=== PATIENT | male | born 1995 | race Hispanic/Latino ===

== ENCOUNTER 2017-12-11 10:43 | Observation (INO) | payer OTHER ==
[2017-12-11] MEDS ORDERED: NA CHLORIDE 0.9% 1,000 ML ONE (11:13)
[2017-12-11 11:34] LABS: Absolute Lymphocytes (CBC) 1.1 K/uL (0.7-4.9); Absolute Monocytes 0.4 K/uL (0.1-1.3); Absolute Neutrophil 4.7 K/uL (1.8-8.0); Basophils % 0.5 % (0-1.3); Eosinophils % 0.5 % (0-4.4); Hematocrit 46.9 % (39.6-49.0); MCH 30.9 pg (27.0-35.0); MCV 85.8 fL (80-100); MPV 8.8 fL (7.6-11.3); Monocytes % 6.3 % (3.3-12.3); RBC Red Blood Cell Count 5.46 M/uL (4.33-5.43)
[2017-12-11 11:39] LABS: Protime INR 1.17
[2017-12-11] MEDS ORDERED: MORPHINE 4 MG/ML SYR ONE ×3 (11:55→15:44)
[2017-12-11] MEDS ORDERED: ONDANSETRON 4 MG/2 ML VIAL ONE ×2 (11:55→12:58)
[2017-12-11 12:06] LABS: ALT/SGPT 14 U/L (12-78); AST/SGOT 18 U/L (15-37); Albumin 4.8 g/dL (3.4-5.0); Alkaline Phosphatase 73 U/L (45-117); BUN Blood Urea Nitrogen 10 mg/dL (7-18); Bicarbonate 27 mmol/L (21-32); Bilirubin Direct 0.3 mg/dL (0-0.2); Bilirubin Total 1.4 mg/dL (0.2-1.0); Glucose Level 104 mg/dL (74-106); Potassium 3.9 mmol/L (3.5-5.1); Protein, Total 8.4 g/dL (6.4-8.2); Sodium Level 139 mmol/L (136-145)
[2017-12-11 12:07] LABS: Lipase 213 U/L (73-393)
--- NOTE | 2017-12-11 12:18 | RAD REPORT ---
EXAM DESCRIPTION: RAD - Abdomen Acute Series - 12/11/2017 12:03 pm CLINICAL HISTORY: Possible rectal foreign body Abdominal pain COMPARISON: No comparisons FINDINGS: The lungs are clear. No subdiaphragmatic free air. No bowel obstruction is seen. No pathol ogic calcifications. Rectal foreign body is seen which has the appearance of a pen. Suggest direct vi sualization.
--- NOTE | 2017-12-11 12:30 | ER ---
Nurse's Notes [facility] Name: Jw Forrest Age: 22 yrs Sex: Male : 1995 Arrival Date: 12/11/2017 Time: 10:44 Bed 14 Private MD: Diagnosis: Foreign body in anus and rectum Presentation: 12/11 10:44 Presenting complaint: Patient states: Patient reports that she was douching rectum in group home with water bottle and checked to see if rectal vault was clear with a pen and accidently let go of the pen. Patient denies bleeding, reports lower abd pain. Patient states that the group home nurse attempted to remove object, but was unable to find anything. Transition of care: patient was not received from another setting of care. Onset of symptoms was December 11, 2017. Risk Assessment: Do you want to hurt yourself or someone else? Patient reports no desire to harm self or others. Initial Sepsis Screen: Does the patient meet any 2 criteria? No. Patient's initial sepsis screen is negative. Does the patient have a suspected source of infection? No. Patient's initial sepsis screen is negative. Care prior to arrival: None. 10:44 Method Of Arrival: Law Enforcement: [place] [employer] 10:44 Acuity: FABIANO 2 ss Historical: - Allergies: 10:48 No Known Allergies; ss - Home Meds: 10:48 unknown anxiety medicaitons [Active]; ss - PMHx: 10:48 Anxiety; ss - PSHx: 10:48 "bottom surgery"; ss - Immunization history:: Adult Immunizations up to date. - Social history:: Smoking status: Patient/guardian denies using tobacco. - Ebola Screening: : Patient denies exposure to infectious person Patient denies travel to an Ebola-affected area in the 21 days before illness onset. Screenin:00 Abuse screen: Denies threats or abuse. Denies injuries from another. Nutritional hb screening: No deficits noted. Tuberculosis screening: No symptoms or risk factors identified. Fall Risk None identified. Assessment: 10:59 Reassessment: Patient reports that she identifies as female. ss 11:10 General: Appears in no apparent distress. Behavior is calm, cooperative. Pain: Pain hb currently is 9 out of 10 on a pain scale. Neuro: Level of Consciousness is awake, alert, obeys commands, Oriented to person, place, time, situation. Cardiovascular: Heart tones S1 S2 present Capillary refill < 3 seconds Patient's skin is warm and dry. Respiratory: Airway is patent Trachea midline Respiratory effort is even, unlabored, Respiratory pattern is regular, symmetrical, Breath sounds are clear bilaterally. GI: Abdomen is non-distended, Bowel sounds present X 4 quads. Abd is soft X 4 quads Abdomen is tender to palpation in suprapubic area. : No signs and/or symptoms were reported regarding the genitourinary system. EENT: No signs and/or symptoms were reported regarding the EENT system. Derm: Skin is intact, is healthy with good turgor, Skin is pink, warm \\T\\ dry. Musculoskeletal: No signs and/or symptoms reported regarding the musculoskeletal system. 12:36 Reassessment: [facility] who states they currently do not have an appropriate ss bed for this patient currently. Options are to transfer elsewhere, wait for discharges or admit patient or have a specialist here see him. No GI programmer numerical control here today. Dr. Levi and MARCELO Brooks notified. Dr. Levi called Dr. Forrest who states he will be down shortly to see the patient. 12:46 Reassessment: Dr. Forrest at bedside to evaluate pt Patient denies pain at this time. hb 12:58 Reassessment: Pt c/o pain 9/10 and nausea. MARCELO Brooks notified, repeat Travis and hb morphine administered as ordered. VSS. Snf guards remain at bedside. Vital Signs: 10:48 BP 148 / 95; Pulse 140; Resp 19; Pulse Ox 98% on R/A; Weight 54.43 kg; Height 5 ft. 5 ss in. (165.10 cm); Pain 8/10; 11:22 BP 143 / 90; Pulse 115; Resp 15; Pulse Ox 100% on R/A; hb 12:45 BP 147 / 65; Pulse 109; Resp 15; Temp 98.3(O); Pulse Ox 100% on R/A; Pain 9/10; hb 10:48 Body Mass Index 19.97 (54.43 kg, 165.10 cm) ED Course: 10:44 Patient arrived in ED. ss 10:48 Triage completed. ss 10:48 Arm band placed on right wrist. ss 10:50 Todd Falcon NP [facility]. pm1 10:50 Emeka Levi MD is Attending Physician. pm1 10:53 Christen Ryan, MATILDA is Primary Nurse. hb 11:00 Patient has correct armband on for positive identification. Bed in low position. Call hb light in reach. Side rails up X 1. Snf Guards x 2 at bedside. 11:10 Inserted saline lock: 20 gauge in right antecubital area, using aseptic technique. hb Blood collected. 11:26 Inserted saline lock: 22 gauge in left antecubital area, using aseptic technique. IV tw2 discontinued, intact, bleeding controlled, No redness/swelling at site. Pressure dressing applied, IV 20g RIGHT AC. 11:29 Radiology exam delayed due to [facility] NEEDING DOCUMENTATION PROOF OF X RAY ag1 ORDERS AND REASON TO REMOVE SHACKLES FOR IMAGING. 12:03 X-ray completed. Patient tolerated procedure well. Patient moved to radiology via ml wheelchair. Patient moved back from radiology. 12:04 Abdomen Acute Series XRAY In Process Unspecified. EDMS 12:53 Harpreet Forrest MD is Hospitalizing Provider. pm1 13:45 No provider procedures requiring assistance completed. Patient admitted, IV remains in hb place. Administered Medications: 11:22 Drug: NS 0.9% 1000 ml Route: IV; Rate: 1000 ml; Site: left antecubital; hb 11:53 Drug: Zofran 4 mg Route: IVP; Site: left antecubital; hb 12:30 Follow up: Response: No adverse reaction hb 11:53 Drug: morphine 4 mg Route: IVP; Site: left antecubital; hb 12:30 Follow up: Response: No adverse reaction hb 12:56 Drug: morphine 4 mg Route: IVP; Site: right antecubital; hb 13:30 Follow up: Response: No adverse reaction hb 12:56 Drug: Zofran 4 mg Route: IVP; Site: right antecubital; hb 13:30 Follow up: Response: No adverse reaction hb Outcome: 12:29 ER care complete, transfer ordered by . pm1 12:54 Decision to Hospitalize by Provider. pm1 13:45 Admitted to OR accompanied by nurse. hb 13:45 Condition: stable 13:45 Instructed on the need for admit, Demonstrated understanding of instructions. 13:49 Patient left the ED. aj1 Signatures: Dispatcher [employer] EDMS Marylou Blanco RN RN aj1 Maria Guadalupe Randolph Shelby, RN RN ss Ember Payne ag1 Todd Falcon, DIE REAMER DIE REAMER pm1 Christen Ryan, RN RN hb Octavia Hale, RN RN tw2
--- NOTE | 2017-12-11 12:30 | EDPHYS ---
Physician Documentation [facility] Name: Jw Forrest Age: 22 yrs Sex: Male : 1995 Arrival Date: 12/11/2017 Time: 10:44 Bed 14 Private MD: ED Physician Emeka Levi HPI: 12/11 11:58 This 22 yrs old Male presents to ER via Law Enforcement with complaints of pm1 Rectal Foreign Body. 11:58 The patient presents to the emergency department with a foreign body sensation in the pm1 rectum. Onset: The symptoms/episode began/occurred yesterday. Context: the patient has placed a foreign body into the rectum, Pen. Modifying factors: The symptoms are alleviated by nothing, The symptoms are aggravated by nothing. Associate signs and symptoms: Pertinent positives: abdominal pain in the suprapubic area, Pertinent negatives: fever, lower GI bleeding, vomiting. The patient has not experienced similar symptoms in the past. Patient seen by mcc PA. PA was unable to remove foreign body from rectum. Patient was performing enema with water and water bottle. Doing what other prisoners do. Checks with a pen to see if it is dirty to determine if additional cleaning required. Lost shade matcher of the pen and it got stuck inside. [facility] PA was unable to remove foreign body. Patient complaining of suprapubic pain. No rectal bleeding. 12:22 Patient reports that the PA was initially able to feel the tip of the pen but when she pm1 tried to extract it kept on going deeper and then she was no longer able to feel it. Historical: - Allergies: 10:48 No Known Allergies; ss - Home Meds: 10:48 unknown anxiety medicaitons [Active]; ss - PMHx: 10:48 Anxiety; ss - PSHx: 10:48 "bottom surgery"; ss - Immunization history:: Adult Immunizations up to date. - Social history:: Smoking status: Patient/guardian denies using tobacco. - Ebola Screening: : Patient denies exposure to infectious person Patient denies travel to an Ebola-affected area in the 21 days before illness onset. ROS: 11:58 Constitutional: Negative for fever, chills, and weight loss, Eyes: Negative for injury, pm1 pain, redness, and discharge, ENT: Negative for injury, pain, and discharge, Neck: Negative for injury, pain, and swelling, Cardiovascular: Negative for chest pain, palpitations, and edema, Respiratory: Negative for shortness of breath, cough, wheezing, and pleuritic chest pain. 11:58 Back: Negative for injury and pain, : Negative for injury, bleeding, discharge, and swelling, MS/Extremity: Negative for injury and deformity, Skin: Negative for injury, rash, and discoloration, Neuro: Negative for headache, weakness, numbness, tingling, and seizure. 11:58 Abdomen/GI: Positive for abdominal pain, Negative for nausea, vomiting, and diarrhea, rectal pain, rectal bleeding. Exam: 11:58 Constitutional: This is a well developed, well nourished patient who is awake, alert, pm1 and in no acute distress. Head/Face: Normocephalic, atraumatic. Eyes: Pupils equal round and reactive to light, extra-ocular motions intact. Lids and lashes normal. Conjunctiva and sclera are non-icteric and not injected. Cornea within normal limits. Periorbital areas with no swelling, redness, or edema. ENT: Nares patent. No nasal discharge, no septal abnormalities noted. Tympanic membranes are normal and external auditory canals are clear. Oropharynx with no redness, swelling, or masses, exudates, or evidence of obstruction, uvula midline. Mucous membranes moist. Neck: Trachea midline, no thyromegaly or masses palpated, and no cervical lymphadenopathy. Supple, full range of motion without nuchal rigidity, or vertebral point tenderness. No Meningismus. Chest/axilla: Normal chest wall appearance and motion. Nontender with no deformity. No lesions are appreciated. Cardiovascular: Regular rate and rhythm with a normal S1 and S2. No gallops, murmurs, or rubs. No pulse deficits. Respiratory: Lungs have equal breath sounds bilaterally, clear to auscultation and percussion. No rales, rhonchi or wheezes noted. No increased work of breathing, no retractions or nasal flaring. Back: No spinal tenderness. No costovertebral tenderness. Full range of motion. 11:58 Skin: Warm, dry with normal turgor. Normal color with no rashes, no lesions, and no evidence of cellulitis. MS/ Extremity: Pulses equal, no cyanosis. Neurovascular intact. Full, normal range of motion. 11:58 Abdomen/GI: Inspection: abdomen appears normal, Bowel sounds: normal, Palpation: abdomen is soft and non-tender, mass, is not appreciated, rebound tenderness, is not appreciated. 11:58 Neuro: Orientation: is normal, Motor: moves all fours. Vital Signs: 10:48 BP 148 / 95; Pulse 140; Resp 19; Pulse Ox 98% on R/A; Weight 54.43 kg; Height 5 ft. 5 ss in. (165.10 cm); Pain 8/10; 11:22 BP 143 / 90; Pulse 115; Resp 15; Pulse Ox 100% on R/A; hb 12:45 BP 147 / 65; Pulse 109; Resp 15; Temp 98.3(O); Pulse Ox 100% on R/A; Pain 9/10; hb 10:48 Body Mass Index 19.97 (54.43 kg, 165.10 cm) ss MDM: 10:55 Patient medically screened. pm1 12:08 Data reviewed: vital signs. Data interpreted: Pulse oximetry: on room air is 100 %. pm1 Interpretation: normal. 12:28 Counseling: I had a detailed discussion with the patient and/or guardian regarding: the pm1 historical points, exam findings, and any diagnostic results supporting the discharge/admit diagnosis, lab results, radiology results, the need to transfer to another facility, for higher level of care, [facility] specialist. 12:37 Physician consultation: Harpreet Forrest MD was called at 12:37, was contacted at 12:37, pm1 regarding patient's condition, and will see patient in ED, shortly, Contacted by Dr. Levi. No bed available at [facility]. 12:58 Physician consultation: Harpreet Forrest MD in the emergency department to see patient at pm1 12:52, Will take the patient to surgery for removal of foreign body with possibility for ostomy if perforation of bowel present. 12/11 11:05 Order name: Basic Metabolic Panel; Complete Time: 12: pm1 12/11 11:05 Order name: CBC with Diff; Complete Time: 11:46 pm1 12/11 11:05 Order name: Creatinine for Radiology; Complete Time: 12:09 pm1 12/11 11:05 Order name: Hepatic Function; Complete Time: 12:09 pm12/11 11:05 Order name: Lipase; Complete Time: 12:09 pm1 12/11 11:05 Order name: Type And Screen; Complete Time: 12:38 pm1 12/11 11:02 Order name: Abdomen Acute Series XRAY; Complete Time: 12:18 pm1 12/11 11:05 Order name: Urine Microscopic Only pm1 12/11 11:05 Order name: PT-INR; Complete Time: 11:46 pm1 12/11 12:29 Order name: ABO/RH no charge; Complete Time: 12:38 EDMS 12/11 11:05 Order name: IV Saline Lock; Complete Time: 11:20 pm1 12/11 11:05 Order name: Labs collected and sent; Complete Time: 11:20 pm1 12/11 13:08 Order name: NPO; Complete Time: 13:13 EDMS Administered Medications: 11:22 Drug: NS 0.9% 1000 ml Route: IV; Rate: 1000 ml; Site: left antecubital; hb 11:53 Drug: Zofran 4 mg Route: IVP; Site: left antecubital; hb 12:30 Follow up: Response: No adverse reaction hb 11:53 Drug: morphine 4 mg Route: IVP; Site: left antecubital; hb 12:30 Follow up: Response: No adverse reaction hb 12:56 Drug: morphine 4 mg Route: IVP; Site: right antecubital; hb 13:30 Follow up: Response: No adverse reaction hb 12:56 Drug: Zofran 4 mg Route: IVP; Site: right antecubital; hb 13:30 Follow up: Response: No adverse reaction hb Disposition: 12/11/17 12:54 Hospitalization ordered by Harpreet Forrest for Observation. Preliminary diagnosis is Foreign body in anus and rectum. - Bed requested for Telemetry/MedSurg (observation). - Status is Observation. aj1 - Condition is Stable. - Problem is new. - Symptoms have improved. UTI on Admission? No Addendum: 12/14/2017 17:55 Co-signature as Attending Physician, Emeka Levi MD. g s Signatures: Dispatcher [employer] EDMS Marylou Blanco RN RN aj1 Lissette Smith RN RN ss Marinas, Patrick, RADIOLOGY RECEPTIONIST RADIOLOGY RECEPTIONIST pm1 Christen Ryan RN RN hb Starr, Gregory, MD MD Corrections: (The following items were deleted from the chart) 12/11 12:25 11:58 Patient seen by mcc PA. PA was unable find or remove foreign body from rectum, pm1 pm1 12:25 11:58 Patient was performing enema with water and water bottle. Doing what other pm1 prisoners do. Checks with a pen to see if it is dirty to determine if additional cleaning required. Lost shade matcher of the pen and it got stuck inside. Senior Living PA was unable to find or remove foreign body. Patient complaining of suprapubic pain. No rectal bleeding. pm1 12:52 12:29 12/11/2017 12:29 Transfer ordered to [facility]. Diagnosis is Foreign body in pm1 anus and rectum. Reason for transfer: Higher level of care. Accepting physician is [facility]. Condition is Stable. Problem is new. Symptoms have improved. pm1 13:03 11:58 Onset: The symptoms/episode began/occurred just prior to arrival, pm1 pm1 13:49 12:54 Hospitalization Ordered by Harpreet Forrest MD for Observation. Preliminary aj1 diagnosis is Foreign body in anus and rectum. Bed requested for Telemetry/MedSurg (observation). Status is Observation. Condition is Stable. Problem is new. Symptoms have improved. UTI on Admission? No. pm1
[2017-12-11] MEDS ORDERED: MORPHINE 4 MG/ML SYR IV PRN (13:22)
[2017-12-11] MEDS ORDERED: ONDANSETRON 4 MG/2 ML VIAL IV PRN (13:22)
[2017-12-11] MEDS ORDERED: Ringers Lactate 1,000 ML IV ONE (13:50)
[2017-12-11] MEDS ORDERED: Levofloxacin 750mg IV 750 MG/150 ML BAG IV ONE (14:04)
[2017-12-11] MEDS ORDERED: MIDAZOLAM HCL 2 MG/2 ML INJ ONE (14:13)
[2017-12-11] MEDS ORDERED: LIDOCAINE 2% MPF 5 ML VIAL ONE (14:14)
[2017-12-11] MEDS ORDERED: PROPOFOL 200 MG/20 ML VIAL IV ONE (14:14)
[2017-12-11] MEDS ORDERED: FENTANYL CITR 100 MCG/2 ML ONE (14:14)
--- NOTE | 2017-12-11 14:58 | P.BOP ---
Preoperative diagnosis: retained rectal fb, pelvic pain Postoperative diagnosis: same Primary procedure: 1. EUA, 2. Rigid Proctoscopy, 3. anoscopy, 4.Removal of rectal foreign body Secondary procedure: 5. Interpretation of fluoroscopy Estimated blood loss: <1cc Specimen: FB (Pen) Findings: FB, no obvious perforation Anesthesia: General Complications: None Transferred to: Recovery Room Condition: Good
[2017-12-11] MEDS ORDERED: MORPHINE 2 MG/ML SYR IV PRN (15:00)
--- NOTE | 2017-12-11 15:12 | RAD REPORT ---
EXAM DESCRIPTION: RAD - Fluoroscopy <1 Hour - 12/11/2017 2:57 pm CLINICAL HISTORY: FOREIGN BODY REMOVAL COMPARISON: No comparisons FINDINGS: Fluoroscopic imaging is submitted from rectal foreign body removal procedure. Details of the procedure not available. Fluoroscopy time: 0.1 minutes.
[2017-12-11] MEDS ORDERED: DEXAMETHASONE 10 MG/ML VIAL ONE (15:40)
[2017-12-11] MEDS ORDERED: PROMETHAZINE 25 MG/ML VIAL ONE (15:43)
[2017-12-11] MEDS: NA CHLORIDE 0.9% 1,000 ML IV SCH ×2 (17:17→23:51)
[2017-12-11] MEDS: CIPROFLOXACIN 400mg IV 400 MG/200 ML BAG IV SCH (20:18)
[2017-12-11] MEDS: HYDROCODONE/APAP 5/325 MG TAB PO PRN (22:07)
--- NOTE | 2017-12-12 01:42 | HP ---
Date of Admission: 12/11/2017 Reason For Consult: Retained foreign body in the rectum with suprapubic pain. History Of Present Illness: This is the case of a 22-year-old inmate, brought by law enforcement aft er complaining of suprapubic pain and then he said that he put a pen on his rectum, but he lost patternmaker hand of that and it is still there since yesterday. He denies any dysuria, hematuria, hematochezia, or me chapincito. No recent traveling out of the country. No family member sick at home. The patient stated th e pen has a metal tip. The one side of the pen is not uniform, but it was there before th at was broken previously. He cannot give more information. He is very shy about his condition. He then claim he has a gender surgery done, although he does not want to show us at this time. The shorty ent right now with guards and also restrained. Past Medical History: Include anxiety. Allergies: NONE. Past Surgical History: He say genitalia surgery, although he cannot specify on it. Family History: Noncontributory. He does smoke. He does not drink alcohol. Review of Systems: Constitutional: Denies any fever or chills. Respiratory: Denies any shortness of breath. Abdominal: As above. Genitalia: As above. Extremity: No calf tenderness. Physical Examination: General: The patient is awake and alert. HEENT: Pupils equal, reactive, anicteric. Neck: Supple. Chest: Clear. Heart: S1, S2. Abdomen: Soft and depressible. No guarding or rebound. The patient has some suprapubic tenderness. Genitalia: The patient refused evaluation at this moment, under anesthesia. Rectal: The patient refused evaluation at this moment, under anesthesia. Extremities: Good capillary refill. Neuro: Cranial nerves 2 through 12 grossly within normal limits. Laboratory Data: Blood work shows a WBC count of 6.3, hemoglobin of 16.9, and platelets of 213. INR is 1.17. Potassium 3.9. Abdominal x-rays shows diaphragmatic free air. There is a rect al foreign body, has appearance of a pen. Assessment: This is a 22-year-old patient with retained foreign body in the rectum he put it there h imself, and he is getting some pain and discomfort that was yesterday. Today, we offered him examina tion under anesthesia, anoscopy, possible removal of foreign body, possible laparotomy, possible rohith l resection, possible ostomy with benefits, alternatives, and risks, which include, but are not limit ed to infection, bleeding, damage to adjacent structures, anesthesia complication, unable to remove t he foreign body, myocardial infarction, even . He also understands this may not relieve the sym ptoms. He might need more than one surgical intervention. He understood and signed a consent. The patient was emergently brought to the operating room. ALL Voice ID: [id number]
[2017-12-12] MEDS: HYDROCODONE/APAP 5/325 MG TAB PO PRN ×5 (02:09→18:47)
[2017-12-12 03:15] LABS: Urine Appearance CLEAR; Urine Bilirubin NEGATIVE (NEG); Urine Blood NEGATIVE (NEG); Urine Color YELLOW; Urine Glucose NEGATIVE (NEG); Urine Protein NEGATIVE (NEG)
[2017-12-12 03:36] LABS: Urine Bacteria <20 /HPF (NONE SEEN); Urine Culture Reflex Order NOT NEEDED; Urine RBC NONE SEEN /HPF (NONE SEEN)
[2017-12-12] MEDS: CIPROFLOXACIN 400mg IV 400 MG/200 ML BAG IV SCH (09:11)
[2017-12-12] MEDS: NA CHLORIDE 0.9% 1,000 ML IV SCH (10:00)
[2017-12-12 17:26] VITALS: BP 105/55; TEMP 98.6
[2017-12-12 18:29] VITALS: O2SAT 99
--- NOTE | 2017-12-13 08:22 | RAD REPORT ---
EXAM DESCRIPTION: RAD - Abdomen W Erect - 12/12/2017 8:17 am CLINICAL HISTORY: Abdominal pain COMPARISON: None. TECHNIQUE: Supine and upright views of the abdomen were obtained. FINDINGS: Moderate stool volume is seen in the ascending and descending portions of the colon. No sm all bowel dilatation. No free air or pneumatosis. No abnormal calcifications and no foreign body. IMPRESSION: No acute abdomen or pelvis finding.
--- NOTE | 2017-12-14 23:00 | OP ---
Date of Procedure: 12/11/2017 Surgeon: Harpreet Forrest MD Preoperative Diagnosis: Retained rectal foreign body, pelvic pain. Postoperative Diagnoses: Retained rectal foreign body, pelvic pain. Procedures: 1.Examination under anesthesia, rigid proctoscopy, anoscopy. 2.Removal rectal foreign body. 3.Interpretation of fluoroscopy. Specimen: Foreign body that looked like a pen. Findings: Foreign body. No obvious perforation. Anesthesia: General plus local. Complications: None. Indication For Procedure: This is the case of a 22-year-old inmate with a self-inflicted trauma to h is rectum by using a foreign body that he claimed was for fun purposes. He denies any attack or any assault. He states he is used to do it. He was stimulating himself but then after that he lost trac tion of the foreign body and he could not get it out, so he was sent to the ER with some discomfort i n the pelvis and he did not tell anybody it was just because he has a foreign body in that area. The patient fully explained the need for EUA anoscopy, proctoscopy, possible removal of foreign body wit h benefits, alternatives, and risks including but not limited to infection, bleeding, damage to adjac ent structures, anesthesia complication, [place], and even . He also understands this may not reliev e any symptoms and he might need more than one surgical invention. In the case we find bowel perfora tion, he may need also a laparotomy, possible bowel resection, possible ostomy. He was also advised and counseled about the importance of avoiding damage to that area and that it may result a life thre atening condition. He signed a consent. Description Of Procedure: The patient was brought to the operating room, placed in supine position. Anesthesia was done without complication. The patient was placed in the lithotomy position with pro per protection. Carefully, an evaluation was done with an anoscope. Due to the location of it, we h ad to use a rigid sig. I advanced under direct visualization in the central lumen until we find the foreign body. We noticed that it is pen, does not seem to be perforating but looked to be caught in the mucosa, so we obtained an anoscope that is longer with a window on the side and this allowed me t o put an instrument to grab the pen and without ripping any area we just proceeded to remove the pen gently without any lacerations. We checked the proximal and distal side. There was no evidence of p erforation. The foreign body was removed. The patient tolerated the procedure well. I have to ment ion that in order for us to localize the area of the pen since at beginning we did not see it so leticia earl, we used a fluoroscopy machine. At the end of the case also we used fluoroscopy machine and we c ould not see any other foreign body. The patient tolerated the procedure well. The patient was sent to recovery in stable condition. BIJAL/JANY Voice ID: [id number] Report ID: [id number]
== END 2017-12-12 19:43 ==
LOC: ER 10:43 → ERHOLD 13:05 → 2ND 14:57
PROVIDERS: ADMIT Surgery; ATTEND Surgery
PROC: 0DCP8ZZ Extirpation of Matter from Rectum, Via Natural or Artificial Opening Endoscopic (ICD-10-PCS; principal; 2017-12-11 14:00)
DX: T18.5XXA Foreign body in anus and rectum, initial encounter (principal); X58.XXXA Exposure to other specified factors, initial encounter; Y92.143 Cell of prison as the place of occurrence of the external cause; R10.2 Pelvic and perineal pain
CPT/HCPCS: 36415; 74019; 74022; 76000; 80048; 80076; 81001; 83690; 85025; 85610; 86850; 86900; 86901; 88300; 99285; G0378; J0744; J1100; J2250; J2270; J2405; J2550; J3010; J7030

== ENCOUNTER 2017-12-14 00:20 | Emergency (ER) | payer OTHER ==
[2017-12-14 01:03] LABS: Absolute Lymphocytes (CBC) 1.4 K/uL (0.7-4.9); Absolute Monocytes 0.4 K/uL (0.1-1.3); Absolute Neutrophil 5.6 K/uL (1.8-8.0); Basophils % 0.7 % (0-1.3); Eosinophils % 0.3 % (0-4.4); Hematocrit 47.6 % (39.6-49.0); Lymphocytes % 18.9 % (15.3-44.8); MCH 30.8 pg (27.0-35.0); MCV 86.8 fL (80-100); MPV 8.6 fL (7.6-11.3); Monocytes % 4.9 % (3.3-12.3); RBC Red Blood Cell Count 5.49 M/uL (4.33-5.43)
[2017-12-14 01:19] LABS: BUN Blood Urea Nitrogen 9 mg/dL (7-18); Bicarbonate 31 mmol/L (21-32); Glucose Level 88 mg/dL (74-106); Potassium 3.6 mmol/L (3.5-5.1); Sodium Level 140 mmol/L (136-145)
[2017-12-14] MEDS ORDERED: MEPERIDINE HCL 50 MG/ML AMP ONE (02:17)
[2017-12-14] MEDS ORDERED: FLEET ENEMA ADULT PR ONE (02:50)
--- NOTE | 2017-12-14 03:20 | EDPHYS ---
Physician Documentation [facility] Name: Jw Goldberg Age: 22 yrs Sex: Male : 1995 Arrival Date: 12/14/2017 Time: 00:28 Bed 27 Private MD: ED Physician Álvaro Lopez HPI: 12/14 02:33 This 22 yrs old Male presents to ER via [employer] with complaints of rn pencil in rectum. 02:33 The patient presents to the emergency department with a foreign body sensation in the rn rectum. Onset: The symptoms/episode began/occurred just prior to arrival. Modifying factors: The symptoms are alleviated by nothing, The symptoms are aggravated by nothing. The patient has experienced a previous episode. Reports put wooden pencil in rectum [employer], sat down, felt a crack, noticed some blood when checked rectum, and couldn't reach pencil.. Historical: - Allergies: 00:33 No Known Allergies; rv - PMHx: 00:33 Anxiety; rv - PSHx: 00:33 None; rv - Immunization history:: Adult Immunizations up to date. - Social history:: Smoking status: unknown. - Ebola Screening: : Patient negative for fever greater than or equal to 101.5 degrees Fahrenheit, and additional compatible Ebola Virus Disease symptoms Patient denies exposure to infectious person Patient denies travel to an Ebola-affected area in the 21 days before illness onset. - Family history:: not pertinent. - Hospitalizations: : No recent hospitalization is reported. ROS: 02:33 Constitutional: Negative for fever, chills, and weight loss, Eyes: Negative for injury, rn pain, redness, and discharge, Cardiovascular: Negative for chest pain, palpitations, and edema, Respiratory: Negative for shortness of breath, cough, wheezing, and pleuritic chest pain, Abdomen/GI: Negative for nausea, vomiting, diarrhea, and constipation, MS/Extremity: Negative for injury and deformity, Skin: Negative for injury, rash, and discoloration, Neuro: Negative for headache, weakness, numbness, tingling, and seizure. Exam: 02:33 Constitutional: This is a well developed, well nourished patient who is awake, alert, rn and in no acute distress. Head/Face: Normocephalic, atraumatic. Eyes: Pupils equal round and reactive to light, extra-ocular motions intact. Lids and lashes normal. Conjunctiva and sclera are non-icteric and not injected. Cornea within normal limits. Periorbital areas with no swelling, redness, or edema. Cardiovascular: Regular rate and rhythm with a normal S1 and S2. No gallops, murmurs, or rubs. Normal PMI, no JVD. No pulse deficits. Respiratory: Lungs have equal breath sounds bilaterally, clear to auscultation and percussion. No rales, rhonchi or wheezes noted. No increased work of breathing, no retractions or nasal flaring. Abdomen/GI: soft, non-tender, no peritoneal signs Skin: Warm, dry with normal turgor. Normal color with no rashes, no lesions, and no evidence of cellulitis. MS/ Extremity: Pulses equal, no cyanosis. Neurovascular intact. Full, normal range of motion. Equal circumference. Vital Signs: 01:00 BP 135 / 80; Pulse 78; Pulse Ox 94% ; Weight 54.43 kg (R); rv 02:16 BP 117 / 87; Pulse 84; Pulse Ox 94% on R/A; rv 02:58 BP 138 / 92; rv 03:00 BP 138 / 92; Pulse 92; Resp 16; Pulse Ox 97% on R/A; bb 03:03 BP 138 / 82; Pulse 93; Pulse Ox 99% on R/A; mw2 04:06 BP 118 / 78; Pulse 84; Resp 16 S; Pulse Ox 97% on R/A; bb MDM: 00:31 Patient medically screened. rn 03:16 Differential diagnosis: rectal foreign body. Data reviewed: vital signs, nurses notes, surg rn test result(s), radiologic studies, plain films, and as a result, I will discharge patient. Counseling: I had a detailed discussion with the patient and/or guardian regarding: the historical points, exam findings, and any diagnostic results supporting the discharge/admit diagnosis, lab results, radiology results, the need to transfer to another facility, for higher level of care. ED course: Consulted with Dr. Goldberg regarding rectal foreign body, requests transfer for colorectal surgery given broken pencils and bleeding, spoke with Dr. Canada at [facility] who initially declined transfer stating patient does not need surgery. Attempted admission to [facility] medicine who also declined, stating patient has surgical problem and should be admitted to surgical service. Ultimately, [facility] accepted transfer thanks to [employer] facilitation. . 12/14 00:32 Order name: CBC with Diff; Complete Time: 02:15 rn 12/14 00:32 Order name: Basic Metabolic Panel; Complete Time: 02:15 rn 12/14 00:32 Order name: XRAY Abdomen Acute Series rn 12/14 00:32 Order name: NPO; Complete Time: 01:01 rn 12/14 00:32 Order name: IV; Complete Time: 01:01 rn Administered Medications: 02:21 Drug: Demerol 25 mg Route: IVP; Site: right antecubital; rv 02:55 Follow up: Response: No adverse reaction rv 02:55 Drug: Fleet Enema 133 ml Route: [place]; rv 04:29 Follow up: Response: No adverse reaction bb Disposition: 12/14/17 03:19 Transfer ordered to [facility]. Diagnosis are Rectal Foreign Body, Rectal bleeding. - Reason for transfer: Higher level of care. - Accepting physician is Dr. Canada. - Condition is Stable. - Problem is new. - Symptoms are unchanged. Signatures: Dispatcher [employer] EDMS Marissa Umana RN RN bb Álvaro Lopez MD MD rn Vicente, Ronaldo, RN RN rv Corrections: (The following items were deleted from the chart) 02:38 02:33 Constitutional: This is a well developed, well nourished patient who is awake, rn alert, and in no acute distress. Abdomen/GI: soft, non-tender, no peritoneal signs rn 04:31 03:19 12/14/2017 03:19 Transfer ordered to [facility]. Diagnosis is Rectal Foreign bb Body; Rectal bleeding. Reason for transfer: Higher level of care. Accepting physician is Dr. Canada. Condition is Stable. Problem is new. Symptoms are unchanged. rn
--- NOTE | 2017-12-14 03:20 | ER ---
Nurse's Notes [facility] Name: Jw Forrest Age: 22 yrs Sex: Male : 1995 Arrival Date: 12/14/2017 Time: 00:28 Bed 27 Private MD: Diagnosis: Rectal Foreign Body;Rectal bleeding Presentation: 12/14 00:28 Presenting complaint: Patient states: "I HAVE A HABIT OF "DOUCHING". I USED A PENCIL rv THIS TIME. I WAS DOING IT WHEN I HEARD SOMEONE IS COMING SO I GOT UP AND WHEN I SAT BACK AND TRY TO PULL IT OUT, I CANNOT REACH IT UNTIL I HEARD A "POP" AND I START BLEEDING.". Transition of care: patient was not received from another setting of care. Onset of symptoms was December 13, 2017 at 22:00. Risk Assessment: Do you want to hurt yourself or someone else? Patient reports no desire to harm self or others. Initial Sepsis Screen: Does the patient meet any 2 criteria? No. Patient's initial sepsis screen is negative. Does the patient have a suspected source of infection? No. Patient's initial sepsis screen is negative. Initial Sepsis Screen: Does the patient have a suspected source of infection?. Care prior to arrival: None. 00:28 Method Of Arrival: [employer] Enforcement: [place] [employer] rv 00:28 Acuity: FABIANO 3 rv Historical: - Allergies: 00:33 No Known Allergies; rv - PMHx: 00:33 Anxiety; rv - PSHx: 00:33 None; rv - Immunization history:: Adult Immunizations up to date. - Social history:: Smoking status: unknown. - Ebola Screening: : Patient negative for fever greater than or equal to 101.5 degrees Fahrenheit, and additional compatible Ebola Virus Disease symptoms Patient denies exposure to infectious person Patient denies travel to an Ebola-affected area in the 21 days before illness onset. - Family history:: not pertinent. - Hospitalizations: : No recent hospitalization is reported. Screenin:34 Abuse screen: Denies threats or abuse. Denies injuries from another. Nutritional rv screening: No deficits noted. Tuberculosis screening: No symptoms or risk factors identified. Fall Risk None identified. Assessment: 00:33 General: Appears in no apparent distress. comfortable, Behavior is calm, cooperative. rv Pain: Denies pain. Neuro: Level of Consciousness is awake, alert, obeys commands, Oriented to person, place, time, situation. Cardiovascular: Capillary refill < 3 seconds. Respiratory: Airway is patent. GI: Reports. : No signs and/or symptoms were reported regarding the genitourinary system. EENT: No signs and/or symptoms were reported regarding the EENT system. Derm: Skin is intact. 02:59 Reassessment: Patient appears in no apparent distress at this time. Patient and/or rv family updated on plan of care and expected duration. Pain level reassessed. Patient is alert, oriented x 3, equal unlabored respirations, skin warm/dry/pink. 03:15 Reassessment: report called to Jackelin GREY at [facility]. bb 04:04 Reassessment: Patient and/or family updated on plan of care and expected duration. Pain bb level reassessed. Patient is alert, oriented x 3, equal unlabored respirations, skin warm/dry/pink. pt is resting quietly, watching TV, IV intact with no erythema or edema noted. Pt is handcuffed with guards at bedside, awaiting transport to [facility]. 04:28 Reassessment: No changes from previously documented assessment. Patient is alert, bb oriented x 3, equal unlabored respirations, skin warm/dry/pink. [facility] service at bedside for transfer of pt to [facility]. Pt handcuffed, guards at bedside. Vital Signs: 01:00 BP 135 / 80; Pulse 78; Pulse Ox 94% ; Weight 54.43 kg (R); rv 02:16 BP 117 / 87; Pulse 84; Pulse Ox 94% on R/A; rv 02:58 BP 138 / 92; rv 03:00 BP 138 / 92; Pulse 92; Resp 16; Pulse Ox 97% on R/A; bb 03:03 BP 138 / 82; Pulse 93; Pulse Ox 99% on R/A; mw2 04:06 BP 118 / 78; Pulse 84; Resp 16 S; Pulse Ox 97% on R/A; bb ED Course: 00:28 Patient arrived in ED. rv 00:31 Álvaro Lopez MD is Attending Physician. rn 00:32 Triage completed. rv 00:34 Arm band placed on right wrist. rv 00:35 Patient has correct armband on for positive identification. Bed in low position. Call rv light in reach. Side rails up X 1. [employer] AT BEDSIDE. Pulse ox on. NIBP on. 00:55 Inserted saline lock: 20 gauge in right forearm, using aseptic technique. Blood kr2 collected. 01:49 XRAY Abdomen Acute Series In Process Unspecified. EDMS 03:03 Fleets enema given. Patient tolerated well. rv 03:17 No provider procedures requiring assistance completed. Patient transferred, IV remains bb in place. Administered Medications: 02:21 Drug: Demerol 25 mg Route: IVP; Site: right antecubital; rv 02:55 Follow up: Response: No adverse reaction rv 02:55 Drug: Fleet Enema 133 ml Route: [place]; rv 04:29 Follow up: Response: No adverse reaction bb Outcome: 03:17 Condition: stable bb 03:17 Instructed on the need for transfer. 03:19 ER care complete, transfer ordered by . rn 04:29 Transferred by ground EMS to [facility], Transfer form bb completed. X-rays sent w/ patient. 04:31 Patient left the ED. bb Signatures: Dispatcher [employer] EDMS Marissa Umana RN RN bb Álvaro Lopez MD MD rn Reaves, Karey, RN RN kr2 Carly Combs mw2 Karson Olson, RN RN rv Corrections: (The following items were deleted from the chart) 03:11 03:03 BP 138 / 102; Pulse 111bpm; Pulse Ox 99% RA; rv mw2
[2017-12-14 04:40] VITALS: BP 118/78; O2SAT 97
--- NOTE | 2017-12-14 09:19 | RAD REPORT ---
EXAM DESCRIPTION: RAD - Abdomen Acute Series - 12/14/2017 1:49 am CLINICAL HISTORY: Rectal foreign body, abdominal pain. A preliminary report was provided at the time of the study and reviewed prior to final report. COMPARISON: Acute abdomen series December 11 FINDINGS: Lungs are clear. Heart size and pulmonary vasculature are normal. No pleural effusion, pne umothorax or other acute cardiopulmonary process seen. Bowel gas pattern is nonspecific. No bowel obstruction or free air. No suspicious calcifications. Two linear foreign bodies are present over the low midline pelvis. Clinical history is placement of a pencil into the rectum. Film findings indicate broken pencil with 2 foreign bodies now present. IMPRESSION: Two pieces of the broken pencil are seen in the rectum. No evidence for bowel perforation.
== END 2017-12-14 04:31 | disposition short-term general hospital (02) ==
LOC: ER 00:20
DX: T18.5XXA Foreign body in anus and rectum, initial encounter (principal); K62.5 Hemorrhage of anus and rectum; X58.XXXA Exposure to other specified factors, initial encounter; Y93.9 Activity, unspecified; Y92.9 Unspecified place or not applicable
CPT/HCPCS: 36415; 74022; 80048; 85025; 96374; 99285; J2175